=== PATIENT | male | born 1935 | race Caucasian/White ===

== ENCOUNTER 2021-06-17 09:08 | Outpatient (CLI) | payer MEDICARE, SELFPAY ==
[2021-06-17] VITALS (15 sets, daily range): BP systolic 121–179; BP diastolic 52–89; PULSE 37–59; RESP 10–26; TEMP 36.4; O2SAT 88–97; BMI 23.2
--- NOTE | 2021-06-17 | IMM_PTH ---
PATIENT: ALEXA GALLEGOS LOC: CT U#:[id number] AGE/SX: 86/M ROOM: RE06/17/[address]: ANKIT Ivy : 1935 BED: DIS: 06/17/2021 SPEC #: [id number] RECD: 06/17/21 12:43 STATUS: DON RESara #: [id number] TANA: 06/17/21 00:[address]: Indy Dukes NP DEPT: IMMUNOHISTOCHEMISTRY RECD BY: Yajaira Kerr ENTERED: 06/17/21 12:44 SP TYPE: IMMUNO OTHR DR: No Primary Care Phys Tissues: Right lower lobe of lung, NOS Procedures: RCC (add) NAPSIN A (add) CK20 (add) CK5-6 (add) CK7 (add) CK8 (add) HEP PAR (add) TTF1 (add) Pankeratin (initial) P40 (add) PSAP (add) PHYSICIAN & [address] [address] SPECIMEN INFORMATION: Tissue Source: Right lower lobe lung mass Clinical Info: Right lower lobe lung mass Specimen Number: [id number] CPT code: 20439, 35784 x10 METHODOLOGY: Deparaffinized sections of prefer/formalin-fixed tissue or PAP/DQ stained slides are incubated with monoclonal/polyclonal antibodies/oligonucleotide probes. Localization is made via biotin free immunoperoxidase method. Appropriate controls are performed and reacted as expected. Results on target cell population are indicated in the following table: RESULTS: ANTIBODY / CLONE RESULT AE1-3 (AE1/AE3/PCK26) positive CK7 (OV-TL12/30) positive CK8 (38vcydL74) positive CK20 (KS20.8) negative TTF-1 (8G7G3/1) negative Napsin A (Rabbit Polyclonal) negative HepPar (OCh1E5) negative RCC (PN-15) negative PSAP (PASE/4LJ) negative CK5-6 (D5 & 1684) positive P40 (BC28) positive These tests were developed and their performance characteristics determined by [facility]. They may not have been cleared or approved by the [place]. Food and Drug Administration. The FDA has determined that such clearance or approval is not necessary. The above immunohistochemical/dualISH markers are ordered and reviewed by the Pathologist. INTERPRETATION: Right lower lobe lung mass, CT-guided biopsy: Non-small cell carcinoma, favor squamous cell carcinoma. ANA MARIA:arleth 06/18/2021 Case has been reviewed in consultation with Dr. Driver who concurs with the above diagnosis. IDC:AM
--- NOTE | 2021-06-17 | ASPIGT_PTH ---
PATIENT: ALEXA GALLEGOS LOC: CT U#:[id number] AGE/SX: 86/M ROOM: RE06/17/[address]: ANKIT Ivy : 1935 BED: DIS: 06/17/2021 SPEC #: [id number] RECD: 06/17/21 11:13 STATUS: DON KIRSTEN #: [id number] TANA: 06/17/21 00:[address]: Indy Dukes NP DEPT: SURGICAL PATHOLOGY RECD BY: Thad Almaraz ENTERED: 06/17/21 11:14 SP TYPE: ASP RAD OTHR DR: No Primary Care Phys Tissues: Lung, NOS Procedures: FNA Specimen Adequacy Special Stain Group II Surgery Specimen Level IV Imprint (control) HEADER OPERATION: CT-guided lung biopsy PRE-OP DIAGNOSIS: RLL masses TISSUE SUBMITTED: RLL lung mass MICROSCOPIC DIAGNOSIS Right lower lobe lung mass, CT-guided core biopsy: Non-small cell carcinoma, favor squamous cell carcinoma. See comment. SJ:arleth 06/18/2021 COMMENT The specimen is evaluated at the time of biopsy by Dr. Ricks. Immediate Evaluation = Malignant cells present derived from non-small cell carcinoma. Immunohistochemistry ([id number]) supports the above diagnosis. Molecular studies on the tumor can be performed if clinically indicated. Please notify the laboratory if they are needed. Case has been reviewed in consultation with Dr. Driver who concurs with the above diagnosis. IDC:AM MICROSCOPIC DESCRIPTION Slides are reviewed. GROSS DESCRIPTION Received in fixative is one container labeled with the patient's name and designated right lower lobe. The specimen consists of multiple irregular fragments of light bowers soft tissue that in aggregate measure 0.6 x 0.2 x <0.1 cm. The specimen is totally submitted in one cassette. / AM:arleth 06/17/2021 TC:0 CPT: 70389, 94823
--- NOTE | 2021-06-17 09:14 | CT_ITS ---
PROCEDURE: CT GUIDED CORE NEEDLE BIOPSY OF A right lower lobe LUNG LESION INDICATION: Male, 86 years old. RLL masses PHYSICIAN: Dr. MIGNON Rogers CONSENT: Written informed consent was obtained having explained the risks, benefits and alternatives in detail with the patient who accepted the risks and agreed to proceed. Laboratory review and clinical assessment was performed. CONSCIOUS SEDATION PROTOCOL: The Drugs used were: 2 mg Versed, IV., and 50 mcg Fentanyl, IV. The sedation time was: 21 minutes. Conscious sedation was started at 10:10 AM and terminated at 10:31 AM The conscious sedation protocol was independently monitored. RADIATION DOSAGE (If Supplied By Facility): CTDIvol = ( 8 ) mGy, DLP = ( 240.51 ) mGycm Individualized dose optimization techniques were used for this CT. TECHNIQUE: The patient was placed in the prone position. A noncontrast CT was performed to localize the lesion in the right lower lobe . The skin surface was prepped and draped in a sterile fashion. 1% lidocaine was used for local anesthesia. Using CT guidance, a 20-gauge coaxial biopsy device was advanced to the periphery of the lesion. A total of 5 core specimens were obtained. The specimens were placed in a formalin solution. A post procedure CT demonstrated no adverse sequelae or pneumothorax. The patient tolerated the procedure well without adverse event. A negative biopsy does not exclude malignancy. Further imaging or clinical followup based on patient condition and degree of clinical suspicion for malignancy. Suggest rebiopsy, if biopsy results do not match with clinical scenario. CT/Biopsy/Inj or Needle Placement IMPRESSION: 1. CT directed core needle biopsy of the using CT image guidance with image documentation as described. Pathology results are pending. 2. Conscious Sedation protocol utilized with independent monitoring. Electronically Signed: Abhilash Mims MD at 11:49 EST , Service support ,
[2021-06-17 09:41] LABS: Platelet Count 355 K/mm3 (150-450)
[2021-06-17 09:52] LABS: International Normalized Ratio 1.1; Partial Thromboplast Time 31.6 Seconds (24.1-36.2); Prothrombin Time (Protime)PT. 13.4 SECONDS (11.7-14.9)
[2021-06-17] MEDS: Midazolam 2 MG/2 ML Syringe IV (10:10)
[2021-06-17] MEDS: fentaNYL 100 MCG/2 ML Ampul IV (10:13)
[2021-06-17] MEDS: Lidocaine 2% (20 ml mdv) 20 ML Vial INFILT (10:20)
--- NOTE | 2021-06-17 10:45 | RAD_ITS ---
STUDY: X-RAY CHEST REASON FOR EXAM: Male, 86 years old. Pneumothorax -- Immediately post lung biopsy TECHNIQUE: AP inspiration and expiration views. COMPARISON: None. FINDINGS: The patient is status post right lung biopsy. There is no evidence of pneumothorax on the immediate postright lung biopsy radiographs. RAD/Chest Insp/Exp 2 View IMPRESSION: No evidence of pneumothorax on the immediate post right lung biopsy radiographs. Electronically Signed: Abhilash Mims MD at 11:38 EST , Service support ,
--- NOTE | 2021-06-17 11:48 | NURSING ---
Dr. Mims aware pt's Sp02 on 2L remains 88-91%. Prior to procedure pt was 92-93% on room air. Pt is able to speak in complete sentences, denies SOB. Dr. Mims reports there is no sign of pneumothorax on the initial chest xray.
--- NOTE | 2021-06-17 11:54 | NURSING ---
At 1040 when SpO2 dropped to 90% on room air, pt placed back on 2L NC.
--- NOTE | 2021-06-17 12:40 | RAD_ITS ---
STUDY: X-RAY CHEST REASON FOR EXAM: Male, 86 years old. Pneumothorax -- 2 hours post lung biopsy TECHNIQUE: AP inspiration and expiration views. COMPARISON: Comparison is made with prior examination done earlier today. FINDINGS: Two-hour post right lung biopsy radiographs. No evidence of pneumothorax. RAD/Chest Insp/Exp 2 View IMPRESSION: No evidence of pneumothorax on the 2 hour post right lung biopsy radiographs. Electronically Signed: Abhilash Mims MD at 20:16 EST , Service support ,
--- NOTE | 2021-06-17 12:41 | NURSING ---
DANETTE Newman continues talking with patient, pt's SpO2 continues to rise, pt able to follow directions and take deep breaths as needed. Pt's NC is turned off and patient is able to maintain saturations of 92% and above as long as he takes deep breaths and continues to talk. DANETTE Newman explains to the pt and his daughter that she will need to remind him throughout the day today to take deep breaths as the procedural sedation medications continue to wear off. Pt and his daughter are in agreement and understand.
== END 2021-06-17 23:59 | disposition home or self-care (01) ==
PROVIDERS: Referring Provider Nurse Practitioner; Visit Provider Nurse Practitioner
DX: C34.31 Malignant neoplasm of lower lobe, right bronchus or lung (principal)
CPT/HCPCS: 32408; 36415; 71046; 77012; 85049; 85610; 85730; 88172; 88305; 88313; 88341; 88342; 99156; J7040; A4216; C2613

== ENCOUNTER → 2023-01-14 | Outpatient (CLI) | payer MEDICARE, SELFPAY ==
[2023-01-14 21:09] LABS: Absolute Lymphocyte Count 0.83 X10^3/uL (0.83-4.51); Basophil# 0.04 X10^3/uL; Basophil% 0.4 % (0-1); Eosinophil# 0.09 X10^3/uL; Eosinophils% 0.9 % (0-5); Hemoglobin 16.7 g/dL (13.0-16.5); Lymphocyte # 0.83 X10^3/ul (0.83-4.51); Lymphocyte % 8.3 % (19-41); Mean Corp Hgb Conc 32.7 g/dL (32-36); Mean Corpuscular Hgb 31.7 pg (27.0-32.0); Mean Corpuscular Volume 96.8 fL (80-94); Mean Platelet Vol. 10.7 fl (6.2-12.0); Monocyte# 0.91 X10^3/uL; Monocyte% 9.1 % (0-10); NRBC Flagged by Analyzer 0 % (0-5); Neutrophil # 8.04 X10^3/uL (2.7-7.7); Neutrophil % 80.6 % (47-70); Platelet Count 263 K/mm3 (150-450); RBC Distribution Width CV 13.2 % (11.6-14.6); RBC Distribution Width SD 47.3 fl (35.1-43.9); Red Blood Count 5.27 M/mm3 (4.6-6.2)
[2023-01-14 21:52] LABS: ALB/GLOB Ratio 1.1 RATIO (0.9-2.4); AST(SGOT) 18 U/L (15-37); Alanine Aminotransfer ALT/SGPT 11 U/L (16-61); Albumin, Serum 3.7 g/dL (3.2-5.0); Alkaline Phosphatase 110 U/L (45-117); Anion Gap 7 (5-15); BUN 12 mg/dL (7-18); BUN/Creat Ratio 14.6 RATIO (10-20); Calcium,Total 9.5 mg/dL (8.5-10.1); Chloride 104 mmol/L (98-107); Cholesterol 194 mg/dL (200); Creatinine, Serum 0.82 mg/dL (0.70-1.30); EST Glomerular Filtration Rate 94 mL/min (>60); Est Glom Filt Rate - Afr Amer 114 mL/min (>60); Globulin 3.3 g/dL (2.2-4.2); Glucose 107 mg/dL (74-106); High Density Lipoprotein 39 mg/dL; Potassium 4.3 mmol/L (3.5-5.1); Sodium Level 138 mmol/L (136-145); Thyroid Stim Hormone (TSH) 2.57 uIU/mL (0.358-3.74); Triglycerides 129 mg/dL; Troponin-I HS 16 pg/mL (3.0-78.0); Very Low Density Lipoprotein 26 mg/dL (5-40)
== END | disposition home or self-care (01) ==
PROVIDERS: PCP Nurse Practitioner; Visit Provider Nurse Practitioner
DX: I49.3 Ventricular premature depolarization (principal); R94.31 Abnormal electrocardiogram [ECG] [EKG]; R00.1 Bradycardia, unspecified; R07.89 Other chest pain; R06.89 Other abnormalities of breathing; R06.02 Shortness of breath
CPT/HCPCS: 80053; 80061; 84443; 84484; 85025; 86141